=== PATIENT | female | born 1955 | race Caucasian/White ===

== ENCOUNTER 2016-11-07 17:31 | Emergency (ER) | payer OTHER, BC ==
[2016-11-07 18:08] VITALS: BP 157/86
[2016-11-07] MEDS ORDERED: Silver Nitrate/Potassium Nitr* 1 EA STICK TOPICAL ONE (18:55)
--- NOTE | 2016-11-07 19:04 | UC ---
UC General HPI - HPI Summary HPI Summary: bleeding from tip of tongue. Has had a blackish monse on tip of tongue for many months. Dentist and primary care doctor aware, didn't think it needed to be biopsied, looked consistent with a venous ramirez. Today while sucking on a candy it opened up and bled. Couldn't get the bleeding to stop. After applying firm pressure with gauze, she was able to get it to finally stop. - History of Current Complaint Chief Complaint: UCWounds Stated Complaint: BLEEDING SPOT/TONGUE Time Seen by Provider: 11/07/16 18:42 Hx Obtained From: Patient, Family/Warrant Server Timing: Constant Onset Severity: Mild Current Severity: Mild - Allergy/Home Medications Allergies/Adverse Reactions: Allergies Allergy/AdvReac Type Severity Reaction Status Date / Time Prednisone AdvReac Severe "I FELT Verified 11/07/16 18:09 LIKE MY SKIN WAS CRAWLING" skelaxin Allergy Severe Hives Uncoded 11/07/16 18:09 Home Medications: Home Medications NK [No Home Medications Reported] 11/07/16 [History Confirmed 11/07/16] PMH/Surg Hx/FS Hx/Imm Hx Endocrine History Of: Denies: Diabetes Cardiovascular History Of: Reports: Cardiac Disorders - cardiac monitoring at this time. Denies: Hypertension, Congestive Heart Failure Respiratory History Of: Reports: Bronchitis GI/ History Of: Denies: Renal Disease Cancer History Of: Denies: Breast Cancer - Surgical History Surgical History: Yes Surgery Procedure, Year, and Place: Fibroid tumor removed right breast 2002. Endometrial Ablation 2005 - Family History Known Family History: Positive: Hypertension - Social History Occupation: Employed Full-time Lives: With Family Alcohol Use: Daily Alcohol Amount: 1 glass wine per day Substance Use Type: None Smoking Status (MU): Never Smoked Tobacco - Immunization History Most Recent Influenza Vaccination: jul 2016 Review of Systems Constitutional: Negative Skin: Negative Eyes: Negative ENT: Other - bleeding from tongue Respiratory: Negative Cardiovascular: Negative Gastrointestinal: Negative Genitourinary: Negative Motor: Negative Neurovascular: Negative Musculoskeletal: Negative Neurological: Negative Psychological: Negative All Other Systems Reviewed And Are Negative: Yes Physical Exam Triage Information Reviewed: Yes Appearance: Well-Appearing, No Pain Distress, Well-Nourished Vital Signs: Initial Vital Signs Temp 98.7 F 11/07/16 18:03 Pulse 69 11/07/16 18:03 Resp 18 11/07/16 18:03 BP 157/86 11/07/16 18:03 Pulse Ox 100 11/07/16 18:03 Vital Signs Reviewed: Yes Eye Exam: Normal ENT: Positive: Other: - on tip of tongue there is a darkened area about 2mm diam. Not currently bleeding, but pt says it has been constantly oozing for past 2 hours. No other mouth pathology Dental Exam: Normal Neck exam: Normal Respiratory Exam: Normal Cardiovascular Exam: Normal Musculoskeletal Exam: Normal Neurological Exam: Normal Psychological Exam: Normal Skin Exam: Normal Course/Dx - Course Course Of Treatment: no bleeding now, but I told her it will probably start up again. Went over measures for applying pressure and getting it to stop. She will see dentist tomorrow if it's still bleeding. - Differential Dx - Multi-Symptom Provider Diagnoses: oral trauma Discharge - Discharge Plan Condition: Stable Disposition: HOME Referrals: Ayde Lazo MD [Primary Care Provider] - Additional Instructions: Your bleeding seems to be coming from a venous ramirez on the tip of the tongue. The bleeding may recur for a few days. Usually direct, firm pressure will stop it. Another trick is to soak a Q-tip with Jasiel-Synephrine spray (over the counter in the cold/sinus section), hold the Q-tip on the bleeding area for a minute, then apply pressure. Another trick is to get the tip very cold with ice and then apply pressure. If all of these tricks fail, you can cauterize the area with the silver nitrate stick. Just dab the stick on the wound for about 5 seconds. It will turn black and it will sting. Then apply pressure. If it continues to ooze, check with your dentist tomorrow. They have more technical means of getting the bleeding to stop.
== END 2016-11-07 19:21 | disposition home or self-care (01) ==
LOC: UCEAST 17:31
DX: L98.8 Other specified disorders of the skin and subcutaneous tissue (principal); Z88.8 Allergy status to other drugs, medicaments and biological substances; F10.99 Alcohol use, unspecified with unspecified alcohol-induced disorder
CPT/HCPCS: 99212; A9270-GY; G0463

== ENCOUNTER 2019-08-03 14:25 | Emergency (ER) | payer BC, OTHER ==
--- OUTSIDE RECORDS SUMMARY | 2019-08-03 14:33 | XMS REPORT | Continuity of Care Document ---
:1955 External Reference #:[id number] Author Name Kat Campoverde O.D. 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 Onset: 11/30/2015 Vitreous degeneration Kat Campoverde O.D. 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 Onset: 04/04/2016 Open wound of eyeball Nimesh Benitez M.D. Onset: 06/02/2018 Combined form of senile cataract Kat Campoverde O.D. Onset: 06/12/2018 Social History Type Date Description Comments Sex Unknown ETOH Use Occasionally consumes alcohol Tobacco Use Start: Unknown Patient has never smoked Recreational Drug Use Denies Drug Use Smoking Status Reviewed: 06/14/19 Patient has never smoked Allergies, Adverse Reactions, Alerts Active Allergies Reaction Severity Comments Date Skelaxin 11/22/2015 Medications Active Medications SIG Qnty Indications Ordering Provider Date Refresh Celluvisc as Needed Ayde Worley, 04/03/2016 1% O.D. Solution Refresh Tears as needed Ayde Worley, 04/03/2016 0.5% O.D. Solution Minocycline HCL Unknown 100mg Capsules Proair HFA Inhale One puff Unknown 108(90Base) By Mouth Every 6 mcg/Act Aerosol Hours Immunizations Description No Information Available Vital Signs Description No Information Available Results Description No Information Available Procedures Description No Information Available Medical Devices Description No Information Available Encounters Description No Information Available Assessments Date Code Description Provider 06/14/2019 H25.813 Combined forms of age-related cataract, Kat Campoverde O.D. bilateral 06/14/2019 H43.813 Vitreous degeneration, bilateral Kat Campoverde O.D. Plan of Treatment 06/14/2019 - Kat Campoverde O.D.H25.813 Combined forms of age-related cataract, bilateralComments:You have been diagnosed with a cataract in the right eye. If you are happy with your vision as it is, we will see you at your next scheduled appointment. If you feel like your vision is getting worse before your scheduled appointment, please call Nilsa at [phone].Follow up :1 Year Follow Up CEE You can expect to have your eyes dilated at your next visit. If Dr. Campoverde orders any additional testing, it may require extra time. We recommend that you bring sunglasses, as dilation drops often make you light sensitive until they wear off. We always recommend you bring someone to drive you home if you are uncomfortable driving with your eyes dilated. If you have any questions before your next visit, feel free to call our office at .H43.813 Vitreous degeneration, bilateralComments:You have a Posterior Vitreous Detachment. Please read the pamphlet that was given to you. If you have any changes in your floaters or flashing lights, please contact this office. Functional Status Description No Information Available Mental Status Description No Information Available Referrals Description No Information Available
[2019-08-03 14:54] VITALS: BP 124/72
--- NOTE | 2019-08-03 15:44 | UC ---
Abdominal Pain Female HPI - HPI Summary HPI Summary: 64-year-old woman comes in with a chief complaint of upper abdominal pain radiating to her thoracic back. Started of about 1:15 this afternoon which was about 2 hours prior to arrival. 6 out of 10 at its worst. There was a burning component to it although is also pressure. She did feel nauseous and sweaty. No shortness of breath. She just eaten some potato soup. Patient still has her gallbladder. In 2012 the patient remembers that she did have a cardiac stress test. No recent stress test. She does have a history of GERD. Patient reports a family history of cardiac problems. - History of Current Complaint Chief Complaint: UCAbdominalPain Stated Complaint: ABD/BACK PAIN Time Seen by Provider: 08/03/19 15:20 Pain Intensity: 5 Allergies/Adverse Reactions: Allergies Allergy/AdvReac Type Severity Reaction Status Date / Time MS Prednisone [Prednisone] AdvReac Severe "I FELT Verified 08/03/19 14:47 LIKE MY SKIN WAS CRAWLING" skelaxin Allergy Severe Hives Uncoded 08/03/19 14:47 PMH/Surg Hx/FS Hx/Imm Hx Previously Healthy: Yes GI/ History: Gastroesophageal Reflux - Surgical History Surgical History: Yes Surgery Procedure, Year, and Place: Fibroid tumor removed right breast 2002. Endometrial Ablation 2005 - Family History Known Family History: Positive: Cardiac Disease, Hypertension - Social History Alcohol Use: Daily Alcohol Amount: 1 glass wine per day Substance Use Type: None Smoking Status (MU): Never Smoked Tobacco - Immunization History Most Recent Influenza Vaccination: jul 2016 Review of Systems All Other Systems Reviewed And Are Negative: Yes Constitutional: Positive: Other - SEE HPI Skin: Positive: Negative Eyes: Positive: Negative ENT: Positive: Negative Respiratory: Positive: Other - SEE HPI Cardiovascular: Positive: Other - SEE HPI Gastrointestinal: Positive: Abdominal Pain, Nausea Genitourinary: Positive: Negative Motor: Positive: Negative Neurovascular: Positive: Negative Musculoskeletal: Positive: Negative Neurological: Positive: Negative Psychological: Positive: Negative Is Patient Immunocompromised?: No Physical Exam Triage Information Reviewed: Yes Appearance: Well-Appearing, No Pain Distress, Well-Nourished Vital Signs: Initial Vital Signs Temp 96.9 F 08/03/19 14:47 Pulse 55 08/03/19 14:47 Resp 16 08/03/19 14:47 BP 124/72 08/03/19 14:47 Pulse Ox 99 08/03/19 14:47 Vital Signs Reviewed: Yes Eye Exam: Normal Eyes: Positive: Conjunctiva Clear Neck: Positive: Supple Respiratory: Positive: Lungs clear, Normal breath sounds, No respiratory distress Cardiovascular: Positive: RRR Abdomen Description: Positive: Other: - Mildly tender in the epigastrium. Bowel Sounds: Positive: Present Musculoskeletal: Positive: Strength Intact, ROM Intact, No Edema - NO CALF TENDERNESS Neurological: Positive: Alert, Muscle Tone Normal Psychological: Positive: Normal Response To Family, Age Appropriate Behavior Skin Exam: Normal Diagnostics - EKG Cardiac Rate: Bradycardia Cardiac Rhythm: Sinus: Normal - 55BPM Ectopy: None Summary of EKG Findings: There is a [address] elevation in V1 and V2. There is a hint of the sagging ST in lead aVF. In [address] elevation very similar in V1 and V2. Abd Pain Female Course/Dx - Course Course Of Treatment: Given the location of the pain most likely cause is gastric or gallbladder however I cannot completely evaluate the possibility of cardiac cause here in clinic. Therefore I recommended further evaluation emergency Department. Patient preferred to go by POV. - Differential Dx/Diagnosis Provider Diagnosis: Upper abdominal pain Discharge ED - Sign-Out/Discharge Documenting (check all that apply): Patient Departure All imaging exams completed and their final reports reviewed: No Studies - Discharge Plan Condition: Stable Disposition: HOME-RECOMMEND TO ED Patient Education Materials: Acute Abdominal Pain (ED) Referrals: Valorie Clark MD [Primary Care Provider] - Additional Instructions: GO DIRECTLY TO THE EMERGENCY DEPARTMENT FOR FURTHER EVALUATION. - Billing Disposition and Condition Condition: STABLE Disposition: Home-Recommend to ED
== END 2019-08-03 15:50 | disposition home health service (06) ==
LOC: UCEAST 14:25
DX: R10.10 Upper abdominal pain, unspecified (principal); M54.6 Pain in thoracic spine; R11.0 Nausea; Z88.8 Allergy status to other drugs, medicaments and biological substances
CPT/HCPCS: 99212; G0463

== ENCOUNTER 2019-08-03 16:04 | Emergency (ER) | payer BC ==
[2019-08-03 16:42] LABS: ABS Basophils 0.1 10^3/ul (0-0.2); ABS Eosinophils 0.1 10^3/ul (0-0.6); ABS Lymphocytes 1.3 10^3/ul (1.0-4.8); ABS Monocytes 0.5 10^3/ul (0-0.8); ABS Neutrophils 9.4 10^3/ul (1.5-7.7); Eosinophil % 0.9 %; Hematocrit 40 % (35-47); Hemoglobin 13.4 g/dL (12.0-16.0); Lymphocyte % 11.1 %; Mean Corpuscular HGB Conc 33 g/dL (31-36); Mean Corpuscular Hemoglobin 29 pg (27-31); Mean Corpuscular Volume 88 fL (80-97); Mean Platelet Volume 7.3 fL (7.4-10.4); Platelet Count 290 10^3/uL (150-450); Red Blood Count 4.58 10^6 /uL (3.70-4.87); Red Cell Distribution Width 14 % (10-15); White Blood Count 11.4 10^3/uL (3.5-10.8)
--- NOTE | 2019-08-03 16:49 | ED ---
Abdominal Pain/Female - HPI Summary HPI Summary: Pt is a 64 y/o F presenting to the ED with a chief complaint of abd pain in the epigastric region initially onset after she had lunch today around 1330. Pt states she had a cup of potato soup for lunch and the pain developed, radiating to her back. She also began to become diaphoretic and has been belching an increasing amount. She denies having pain in her shoulder blade. She has not taken anything for pain. Pt denies sob. No fever, chills. Pt states pain has improved, but not resolved. Pt states she went to they performed an EKG and sent pt to ED for further evaluation. Pt does have a history of hx of dyspepsia. She had a colonoscopy and endoscopy several years ago by Dr. Montalvo. Pt states used to take omeprazole, but not longer does. Pt with borderline chol - no meds. No dm, htn, tobacco. Pt does report she drank more wine than usual last weekend. Pt states she feels bloated in the epigastrum and needs to "belch" Patients medications reviewed this visit. - History of Current Complaint Chief Complaint: EDAbdPain Stated Complaint: ABD PAIN BACK PIAN CHEST PAIN Time Seen by Provider: 08/03/19 16:19 Hx Obtained From: Patient Onset/Duration: Sudden Onset, Lasting Hours, Still Present Timing: Constant Severity Initially: Moderate Severity Currently: Mild Pain Intensity: 2 Pain Scale Used: 0-10 Numeric Location: Epigastric Radiates: Yes Radiates to: Back Aggravating Factor(s): Nothing Alleviating Factor(s): Nothing Associated Signs and Symptoms: Positive: Back Pain. Negative: Diaphoresis Allergies/Adverse Reactions: Allergies Allergy/AdvReac Type Severity Reaction Status Date / Time MS Prednisone [Prednisone] AdvReac Severe "I FELT Verified 08/03/19 16:08 LIKE MY SKIN WAS CRAWLING" skelaxin Allergy Severe Hives Uncoded 08/03/19 16:08 PMH/Surg Hx/FS Hx/Imm Hx Previously Healthy: Yes Endocrine/Hematology History: Denies: Hx Diabetes Cardiovascular History: Reports: Hx Hypercholesterolemia - slightly elevated, not on meds Denies: Hx Aneurysm, Hx Angina, Hx Congenital Heart Disease, Hx Congestive Heart Failure, Hx Hypertension History: Denies: Hx Renal Disease - Cancer History Hx Chemotherapy: No Hx Radiation Therapy: No - Surgical History Surgery Procedure, Year, and Place: Fibroid tumor removed right breast 2002. Endometrial Ablation 2005 Infectious Disease History: No Infectious Disease History: Denies: History Other Infectious Disease, Traveled Outside the [place] in Last 30 Days - Family History Known Family History: Positive: Cardiac Disease, Hypertension - Social History Alcohol Use: Daily Alcohol Amount: 1 glass wine per day Hx Substance Use: No Substance Use Type: Reports: None Hx Tobacco Use: No Smoking Status (MU): Never Smoked Tobacco Review of Systems Positive: Skin Diaphoresis Positive: Abdominal Pain Positive: Myalgia - back pain All Other Systems Reviewed And Are Negative: Yes Physical Exam - Summary Physical Exam Summary: Vital Signs Reviewed: Yes A+Ox3, mild discomfort Eyes: Conjunctiva Clear, JAYLAN. EOM intact and full ENT: Hearing grossly normal TM x 2 clear, mmoist, uvula midline, no exudate, no erythema Neck: Positive: Supple Respiratory: Positive: No respiratory distress, No accessory muscle use + CTA throughout no w/r Cardiovascular: RRR nl s1, s2 no m/r CBT <2 sec abd soft, no CVA, mild epigastric tenderness with direct palp. No guarding, no rebound , + BS Musculoskeletal Exam: COLLINS x 4 without difficulty Strength Intact, ROM Intact Neurological: Positive: Alert, + sensation throughout Psychological: Positive: Normal Response To examiner Skin: Positive: no rash, no ecchymosis Triage Information Reviewed: Yes Vital Signs On Initial Exam: Initial Vitals Temp Pulse Resp BP Pulse Ox 97.3 F 62 15 171/80 100 08/03/19 16:06 08/03/19 16:06 08/03/19 16:06 08/03/19 16:06 08/03/19 16:06 Vital Signs Reviewed: Yes Procedures - Sedation Patient Received Moderate/Deep Sedation with Procedure: No Diagnostics - Vital Signs Vital Signs Temp Pulse Resp BP Pulse Ox 08/03/19 16:06 97.3 F 62 15 171/80 100 - Laboratory Lab Results: Lab Results 08/03/19 Range/Units 16:35 WBC 11.4 H (3.5-10.8) 10^3/uL RBC 4.58 (3.70-4.87) 10^6 /uL Hgb 13.4 (12.0-16.0) g/dL Hct 40 (35-47) % MCV 88 (80-97) fL MCH 29 (27-31) pg MCHC 33 (31-36) g/dL RDW 14 (10-15) % Plt Count 290 (150-450) 10^3/uL MPV 7.3 L (7.4-10.4) fL Neut % (Auto) 82.3 % Lymph % (Auto) 11.1 % Casey % (Auto) 4.7 % Eos % (Auto) 0.9 % Baso % (Auto) 1.0 % Absolute Neuts (auto) 9.4 H (1.5-7.7) 10^3/ul Absolute Lymphs (auto) 1.3 (1.0-4.8) 10^3/ul Absolute Monos (auto) 0.5 (0-0.8) 10^3/ul Absolute Eos (auto) 0.1 (0-0.6) 10^3/ul Absolute Basos (auto) 0.1 (0-0.2) 10^3/ul Absolute Nucleated RBC 0.0 10^3/ul Nucleated RBC % 0.0 Result Diagrams: 08/03/19 16:35 08/03/19 16:35 Lab Statement: Any lab studies that have been ordered have been reviewed, and results considered in the medical decision making process. - Radiology CXR Radiology Interpretation Completed By: ED Physician Summary of Radiographic Findings: No acute process. Pending official radiology report. - EKG 1705 Cardiac Rate: Bradycardia - 59bpm EKG Rhythm: Sinus Bradycardia ST Segment: Normal Ectopy: None Summary of EKG Findings: EKG at 1705 shows sinus bradycardia at 59bpm with mild ST depression in lead II. No change from 2013. ED physician has reviewed and interpreted this EKG. Re-Evaluation - Re-Evaluation 1st re-eval Re-Evaluation Time: 18:10 Change: Unchanged Comment: I discussed with patient her ultrasound and lab work. Patient states her pain is still present but not as intense. She continues to her back. After discussion, we'll give patient some Maalox. Patient did decline viscous lidocaine. will place line, IVF and pepcid. We'll do a CTA to check for dissection given the fact it's coming straight to her back. We'll also check a second troponin 6:30 which is 3-1/2 hours after presentation. Patient and spouse comfortable in agreement with plan. If CTA is negative anticipate patient will be discharged recommend she low acidic low-carb diet. Follow PCP. REviewed strict return precautions. Patient has understanding and agreement. Pt audio recorded the conversation as was not in room, and I told the pt Id be back to answer any questions he had. 2nd re-eval Re-Evaluation Time: 18:45 Change: Unchanged Comment: Returned to room where was present in room with pt. Reviewed plan. Pt states maalox may have helpd. Agreement with plan and answered their questions. Aware pt will be signed out at 1900. prelim CXR neg. CTA and second trop pending Abdominal Pain Fem Course/Dx - Course Course Of Treatment: Patient presents to urgent care for evaluation of abdominal pain that started this afternoon after eating potato soup. Patient states possibly 30 minutes after the soup she felt epigastric pain, burning, nauseated. Patient states the pain went to her back. She stated she felt sweaty and nauseous but did not vomit. Patient states she went to urgent here in the Center here for further evaluation. Patient has a history of borderline cholesterol and her mom has history of cardiac history. Patient does have cardiac disease hypertension diabetes and does not smoke cigarettes. Patient does have history of dyspepsia. On exam vital signs are stable. Patient appears mildly uncomfortable. Patient with mild epigastric pain with direct palpation. Reviewed EKG and no ST elevation OR noted. Chest labs, EKG, lab work including troponin and lipase were upper quadrant. Suspect this is likely related to GERD or biliary colic however given cardiac history and family will check troponin. Patient declines any analgesics at this time. Patient requested no IV at this time. Patient does have a primary care appointment on . Patient and spouse at bedside comfortable on agreement with plan. - Diagnoses Provider Diagnoses: Abdominal pain Discharge ED - Sign-Out/Discharge Documenting (check all that apply): Sign-Out Patient - pending CT and 2nd trop Signing out patient TO: Yaneth Jack - Discharge Plan Condition: Stable Disposition: HOME Prescriptions: Omeprazole 20 mg PO DAILY #30 capsule. Patient Education Materials: Abdominal Pain (ED) Referrals: Valorie Clark MD [Primary Care Provider] - Additional Instructions: Please follow up with your primary care physician within three days. Please return to ED for any new or worsening symptoms. Use pepcid or Miralax for abdominal discomfort. - Billing Disposition and Condition Condition: STABLE Disposition: Home - Attestation Statements Document Initiated by Scribe: Yes Documenting Scribe: Leatha Capone Provider For Whom Scribe is Documenting (Include Credential): Janay Perez MD. Scribe Attestation: Leatha Ragland, scribed for Janay Perez MD. on 08/04/19 at 0729. Scribe Documentation Reviewed: Yes Provider Attestation: The documentation as recorded by the scribe, Leatha Capone accurately reflects the service I personally performed and the decisions made by me, Janay Perez MD. Status of Scribe Document: Viewed
[2019-08-03] MEDS: NS 0.9% 1000 ML** 1,000 ML IV ONE ×2 (17:16→18:59)
[2019-08-03 17:24] LABS: Albumin 4.2 g/dL (3.2-5.2); Albumin/Globulin Ratio 1.4 (1-3); BUN/Creatinine Ratio 17.4 (8-20); Calcium 9.4 mg/dL (8.6-10.3); EGFR African American 80.9 (>60); EGFR Non-African American 66.9 (>60); Globulin 2.9 g/dL (2-4); Magnesium 2.1 mg/dL (1.9-2.7); Potassium 4.2 mmol/L (3.5-5.0); Total Bilirubin 0.4 mg/dL (0.2-1.0); Total Protein 7.1 g/dL (6.4-8.9)
[2019-08-03 17:48] LABS: Urine Appearance Cloudy; Urine Bilirubin Negative (Negative); Urine Blood Negative (Negative); Urine Color Yellow; Urine Glucose Negative (Negative); Urine Ketones Negative (Negative); Urine Nitrite Negative (Negative); Urine Protein Negative (Negative); Urine Specific Gravity 1.019 (1.010-1.030); Urine Urobilinogen Negative (Negative)
[2019-08-03] MEDS ORDERED: Famotidine IV* 10 MG/ML 2 ML (20 mg) IV SLOW PU ONE (18:17)
[2019-08-03] MEDS ORDERED: Al Hydrox/Mg Hydrox/Simet LIQ* 30 ML UDC PO ONE (18:17)
[2019-08-03] MEDS ORDERED: Iohexol 300* (CONTRAST) 10 ML SDV IV ONE (18:48)
[2019-08-03] MEDS ORDERED: Iohexol 350* (CONTRAST) 500 ML MDV IV ONE (18:54)
--- NOTE | 2019-08-03 19:06 | ED ---
Progress - Progress Note Progress Note: Patient is a sign out at 19:00 on 08/03/[address] Janay Perez MD to Dr. Yaneth Jack MD at shift change, pending laboratory results and Chest/Abdomen/ Pelvis CT. At 20:48, I have discussed results with the patient and abdominal pain is resolved. Discussed symptoms that warrant immediate return to ED. Patient will be discharged with a diagnosis of abdominal pain. - Results/Orders Results/Orders: Chest/Abdomen/Pelvis CTA IMPRESSION: 1. Slight interstitial prominence with minimal atelectasis or scar in the right middle lobe and left lower lobe. 2. Otherwise negative CTA chest. No pulmonary embolism is identified. 1. Mild gallbladder wall thickening with slight pericholecystic induration but no stones by CT. 2. 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 There is moderate right neural foraminal stenosis. 3. Negative CTA abdomen/pelvis. No abdominal aortic aneurysm or dissection. Re-Evaluation - Re-Evaluation 1st re-eval Re-Evaluation Time: 18:10 Change: Unchanged Comment: I informed the pt of her CXR results as well as the shift change at 7. We will place a line in the pt and give her Pepcid and Maalox, as well as do a CTA to r/o aneurysm. Pt audio recorded the conversation as was not in room, and I told the pt Id be back to answer any questions he had. 2nd re-eval Re-Evaluation Time: 18:45 Change: Unchanged Comment: Returned to room where patient was present in room with , informed him of the plan and answered their questions. 3rd re-eval Re-Evaluation Time: 20:48 Change: Unchanged Comment: I have discussed results with the patient and abdominal pain is resolved. Discussed symptoms that warrant immediate return to ED. Course/Dx - Diagnoses Provider Diagnoses: Abdominal pain Discharge ED - Sign-Out/Discharge Documenting (check all that apply): Patient Departure - Discharge, Receiving Sign-Out Receiving patient FROM: Janay Perez - 19:00 on 08/03/19 - Discharge Plan Condition: Stable Disposition: HOME Prescriptions: Omeprazole 20 mg PO DAILY #30 capsule. Patient Education Materials: Abdominal Pain (ED) Referrals: Valorie Clark MD [Primary Care Provider] - Additional Instructions: Please follow up with your primary care physician within three days. Please return to ED for any new or worsening symptoms. Use pepcid or Miralax for abdominal discomfort. - Billing Disposition and Condition Condition: STABLE Disposition: Home - Attestation Statements Document Initiated by Srikanth: Yes Documenting Scribe: Oneida Dumont Provider For Whom Srikanth is Documenting (Include Credential): Yaneth Jack MD Scribe Attestation: IOneida, scribed for Yaneth Jack MD on 08/04/19 at 2004. Scribe Documentation Reviewed: Yes Provider Attestation: The documentation as recorded by the Oneida rod accurately reflects the service I personally performed and the decisions made by me, Yaneth Jack MD Status of Scribe Document: Viewed
[2019-08-03 21:06] VITALS: BP 141/90
== END 2019-08-03 20:56 | disposition home or self-care (01) ==
LOC: ED 16:04
DX: R10.9 Unspecified abdominal pain (principal); M54.9 Dorsalgia, unspecified
CPT/HCPCS: 36415; 71045; 71275; 74174; 76705; 80053; 81003; 82550; 83690; 83735; 84484; 85025; 93005; 96361; 96374; 99282; A9270-GY; Q9967

== ENCOUNTER 2019-11-14 18:37 | Emergency (ER) | payer BC ==
--- OUTSIDE RECORDS SUMMARY | 2019-11-14 18:44 | XMS REPORT | Continuity of Care Document ---
:1955 External Reference #:[id number] Author Name Abelino Montalvo MD Address [address] [place] [id number] Care Team Providers Name Role Phone Ayde Lazo MD - Family Medicine Care Team Information Construction Consultant Valorie Clark M.D. Care Team Information Construction Consultant [phone] Problems Active Problems Provider Date Asthma without status asthmaticus ERIC Marin-Fatou Onset: 03/09/2013 Gastroesophageal reflux disease Abelino Montalvo MD Onset: 08/11/2019 Flatulence, eructation and gas pain Abelino Montalvo MD Onset: 09/29/2013 Abdominal pain Abelino Montalvo MD Onset: 09/29/2013 Social History Type Date Description Comments Sex Unknown ETOH Use Drinks 1 Alcoholic Beverage Per Week Tobacco Use Start: Unknown Patient has never smoked Smoking Status Reviewed: 08/11/19 Patient has never smoked Allergies, Adverse Reactions, Alerts Active Allergies Reaction Severity Comments Date Skelaxin hives 03/09/2013 Prednisone 08/11/2019 Medications Active Medications SIG Qnty Indications Ordering Provider Date Peg 3350/Electrolytes use as directed 4000ml Abelino Montalvo, 08/12/2019 240gm Solution Rec Omeprazole 1 by mouth every Unknown 20mg day Capsules DR Gina Description No Information Available Vital Signs Date Vital Result Comment 08/11/2019 3:53pm Height 70 inches 5'10" Weight 189.00 lb BP Systolic 130 mmHg BP Diastolic 72 mmHg Heart Rate 55 /min BMI (Body Mass Index) 27.1 kg/m2 03/09/2014 2:22pm Height 70.5 inches 5'10.50" Weight 180.00 lb BP Systolic 110 mmHg BP Diastolic 70 mmHg Heart Rate 60 /min BMI (Body Mass Index) 25.5 kg/m2 Results Test Acquired Date Facility Test Result H/L Range Note Surgical 10/07/2019 [facility] Surgical SEE RESULT 1, 2 Pathology Pathology BELOW PDFReport SEE IMAGE Ua Microscopic(!) 08/03/2019 [facility] WBC <pending> Ua RBC <pending> Ua Epithelial Cells <pending> Ua Crystals <pending> Ua Bacteria <pending> Ua Mucous <pending> Ua Amorphous <pending> Ua Yeast <pending> Ua Casts <pending> Xray 08/03/2019 [facility] Radiology Chest Ap Or Port <pending> Xray 08/03/2019 [facility] Radiology Cta Chest/Abd/Pel <pending> 1 [id number] 2 SEE RESULT BELOW Name: JENNIFER LR : [address]: Abelino Montalvo MD Acct: [id number] Unit: [id number] AGE: 64 Location: [facility] Re10/07/19 SEX: F Status: DEP REF SPEC: [id number] LAURIE: 10/07/19-1325 [facility] DR: Abelino Montalvo MD REQ: [id number] RECD: 10/07/19 STATUS: VIOLET PRICE DR: Valorie Clark MD _ ORDERED: LEVEL 4 COMMENTS: [id number] FINAL DIAGNOSIS Colon, rectum, biopsy: -- Hyperplastic polyps. CLINICAL HISTORY Screening/Surveillance for malignancy in asymptomatic patient POST-OPERATIVE DIAGNOSIS Colonoscopy: to terminal ileum; rectal polyps - biopsy GROSS DESCRIPTION The specimen is received in formalin labeled, Rectal Polyps Biopsy (2), and consists of two mccurdy-pink irregular soft tissue fragments measuring 0.3 x 0.2 by up to 0.2 cm and 0.4 x 0.2 x 0.1 cm which are submitted entirely in one cassette. Signed by and Reported on: Shelia Lewis MD 10/08/19 1556 END OF REPORT DEPARTMENT OF PATHOLOGY, [address] [place] [address] Vj Kelly M.D. Director [facility] # [id number] SEE RESULT BELOW Name: EVELIA HUERTAJENNIFER Misael : [address]: Abelino Montalvo MD Acct: [id number] Unit: [id number] AGE: 64 Location: [facility] Re10/07/19 SEX: F Status: DEP REF SPEC: [id number] LAURIE: 10/07/19-6815 [facility] DR: Abelino Montalvo MD REQ: [id number] RECD: 10/07/19 STATUS: VIOLET PRICE DR: Valorie Clark MD _ ORDERED: LEVEL 4 COMMENTS: [id number] FINAL DIAGNOSIS Colon, rectum, biopsy: -- Hyperplastic polyps. CLINICAL HISTORY Screening/Surveillance for malignancy in asymptomatic patient POST-OPERATIVE DIAGNOSIS Colonoscopy: to terminal ileum; rectal polyps - biopsy GROSS DESCRIPTION The specimen is received in formalin labeled, Rectal Polyps Biopsy (2), and consists of two mccurdy-pink irregular soft tissue fragments measuring 0.3 x 0.2 by up to 0.2 cm and 0.4 x 0.2 x 0.1 cm which are submitted entirely in one cassette. Signed by and Reported on: Shelia Lewis MD 10/08/19 1556 END OF REPORT DEPARTMENT OF PATHOLOGY, [address] [place] [address] Vj Kelly M.D. Director [facility] # [id number] Procedures Description No Information Available Medical Devices Description No Information Available Encounters Type Date Location Provider Dx Diagnosis Office Visit 08/11/2019 [facility]astroenter[facility] Abelino Anne K21.9 [facility]esophageal [facility] MD reflux disease without esophagitis Assessments Date Code Description Provider 08/11/2019 K21.9 Gastro-esophageal reflux disease without Abelino Montalvo MD esophagitis Plan of Treatment 08/11/2019 - Abelino Montalvo MDK21.9 Gastro-esophageal reflux disease without esophagitisComments:I had a long discussion with the patient regarding all of her symptoms. She is doing much better atthis time. We discussed the possibility of this being biliary dyskinesia, a passed gallstone, gastroesophageal reflux disease peptic ulcer disease and H. pylori celiac disease she is much better at this time. She did have an upper endoscopy 2013 that was unsedated and biopsies were normal. At this point she is due for repeat colonoscopy I do not think we need to repeat an EGD at this time. She will call me with any questions concerns changes or updates Functional Status Description No Information Available Mental Status Description No Information Available Referrals Description No Information Available
[2019-11-14 18:47] VITALS: BP 142/81
[2019-11-14] MEDS ORDERED: Tetan/Diph/Pertus SYR(Tdap)* 0.5 ML SYR(BOOSTRIX) use SYR contains LATEX IM ONE (18:53)
--- NOTE | 2019-11-14 18:55 | UC ---
Lower Extremity/Ankle HPI - HPI Summary HPI Summary: stepped on a nail got a superficial wound right great toe earlier today--- patient wishes a tetanus shot - History of Current Complaint Chief Complaint: UCGeneralIllness Stated Complaint: FOOT INJURY Time Seen by Provider: 11/14/19 18:49 Hx Obtained From: Patient Hx Last Menstrual Period: post menopausal ?: No Onset/Duration: Sudden Onset Pain Intensity: 1 Pain Scale Used: 0-10 Numeric Aggravating Factor(s): Nothing Alleviating Factor(s): Nothing Able to Bear Weight: Yes - Allergies/Home Medications Allergies/Adverse Reactions: Allergies Allergy/AdvReac Type Severity Reaction Status Date / Time prednisone Allergy See Comment Verified 09/28/19 13:45 skelaxin Allergy Severe Hives Uncoded 09/28/19 13:45 Home Medications: Home Medications Calcium Carbonate [Tums] 1 tab 11/14/19 [History] PMH/Surg Hx/FS Hx/Imm Hx Previously Healthy: Yes - Surgical History Surgical History: Yes Surgery Procedure, Year, and Place: Fibroid tumor removed right breast 2002. Endometrial Ablation 2005 - Family History Known Family History: Positive: Cardiac Disease, Hypertension - Social History Occupation: Employed Full-time Lives: With Family Alcohol Use: Daily Alcohol Amount: 1 glass wine per day Substance Use Type: None Smoking Status (MU): Never Smoked Tobacco - Immunization History Most Recent Influenza Vaccination: jul 2016 Review of Systems All Other Systems Reviewed And Are Negative: Yes Constitutional: Positive: Negative Skin: Positive: Other - superficial pw to right great toe Eyes: Positive: Negative ENT: Positive: Negative Respiratory: Positive: Negative Cardiovascular: Positive: Negative Gastrointestinal: Positive: Negative Genitourinary: Positive: Negative Motor: Positive: Negative Neurovascular: Positive: Negative Musculoskeletal: Positive: Negative Neurological/Mental Status: Positive: Negative Psychological: Positive: Negative Is Patient Immunocompromised?: No Physical Exam Triage Information Reviewed: Yes Appearance: Well-Appearing, No Pain Distress, Well-Nourished Vital Signs: Initial Vital Signs Temp 97.5 F 11/14/19 18:42 Pulse 70 11/14/19 18:42 Resp 18 11/14/19 18:42 BP 142/81 11/14/19 18:42 Pulse Ox 96 11/14/19 18:42 Vital Signs Reviewed: Yes Eye Exam: Normal Eyes: Positive: Conjunctiva Clear ENT Exam: Normal ENT: Positive: Normal ENT inspection, Hearing grossly normal. Negative: Trismus , Muffled voice, Hoarse voice Dental Exam: Normal Neck exam: Normal Neck: Positive: Supple, Nontender Respiratory Exam: Normal Respiratory: Positive: Chest non-tender, No respiratory distress, No accessory muscle use Cardiovascular Exam: Normal Cardiovascular: Positive: RRR, Pulses Normal, Brisk Capillary Refill Musculoskeletal Exam: Normal Musculoskeletal: Positive: Strength Intact, ROM Intact, No Edema Neurological Exam: Normal Neurological: Positive: Alert, Muscle Tone Normal Psychological Exam: Normal Skin: Positive: Other - superficial red spot on plantar surface of right great toe Lower Extremity Course/Dx - Course Course Of Treatment: patient refuses antibiotic ---education provided about pw and infection risk- patient verbalizes understanding ---tetanus updated will follow with pcp - Differential Dx/Diagnosis Provider Diagnosis: Puncture wound of foot, right, Hypertension Discharge ED - Sign-Out/Discharge Documenting (check all that apply): Patient Departure All imaging exams completed and their final reports reviewed: No Studies - Discharge Plan Condition: Stable Disposition: HOME Patient Education Materials: Puncture Wound (ED), Hypertension (ED) Referrals: Valorie Clark MD [Primary Care Provider] - 2 Weeks - Billing Disposition and Condition Condition: STABLE Disposition: Home
== END 2019-11-14 19:15 | disposition home or self-care (01) ==
LOC: UCEAST 18:37
DX: S91.131A Puncture wound without foreign body of right great toe without damage to nail, initial encounter (principal); W45.0XXA Nail entering through skin, initial encounter; Y92.9 Unspecified place or not applicable; Z23 Encounter for immunization; I10 Essential (primary) hypertension; Z88.8 Allergy status to other drugs, medicaments and biological substances
CPT/HCPCS: 90471; 90715; 99211; G0463